=== PATIENT | female | born 1970 | race Caucasian/White ===

== ENCOUNTER 2024-09-16 20:53 | Emergency (ER) | payer OTHER ==
[~2024-09-16] VITALS: Ht 165.1 cm; Wt 65.0 kg
[2024-09-16 20:54] VITALS: O2SAT 99
[2024-09-16] MEDS: KETOROLAC 30MG/ML VIAL IM ONE (22:23)
[2024-09-17] MEDS ORDERED: ACET-2708 MT (01:24)
[2024-09-17] MEDS ORDERED: NAPR220C61 MT (01:24)
[2024-09-17 01:51] VITALS: BP 127/87; PULSE 89; RESP 18; TEMP 36.7; O2SAT 99
== END 2024-09-17 01:52 | disposition home or self-care (01) ==
LOC: ER 20:53
DX: S80.11XA Contusion of right lower leg, initial encounter (principal); G89.11 Acute pain due to trauma; V43.52XA Car driver injured in collision with other type car in traffic accident, initial encounter; Y93.89 Activity, other specified; Y92.89 Other specified places as the place of occurrence of the external cause; Y99.8 Other external cause status
CPT/HCPCS: 99284; 73100; 73590; 96372; J1885